=== PATIENT | male | born 1970 | race African-American/Black ===

== ENCOUNTER 2017-06-23 15:21 | Emergency (ER) | payer MEDICAID, BC ==
[~2017-06-23] VITALS: Ht 175.3 cm; Wt 90.7 kg
[2017-06-23] MEDS ORDERED: NKM (15:37)
[2017-06-23 16:11] VITALS: BP 130/84
[2017-06-23] MEDS ORDERED: IBUPROFEN600 MG ORAL (16:46)
[2017-06-23] MEDS ORDERED: ROBAXIN500 MG PO (16:46)
--- NOTE | 2017-06-23 16:46 | Emergency Room Report ---
History of Present Illness General Chief Complaint: Headache Source: Patient Present Illness HPI 47-year-old male presents to the emergency department complaining of progressive headache 8/10 in severity in the right posterior area that radiates down into the neck. 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 he describes right sided neck tightness. denies recent ill contacts or travel. Patient denies sudden onset, nausea, vomiting, dizziness. Denies fevers, chills or cough. No photophobia. Denies lateral weakness or slurred speech. Denies CP, Palpitations, LOC, AMS, dizziness, Changes in Vision , Sensation, paresthesias, or a sudden severe headache. Allergies: Coded Allergies: FISH CONTAINING PRODUCTS (Verified Allergy, Unknown, 06/23/17) Patient History Past Medical History: see triage record Past Surgical History: none Pertinent Family History: none Reviewed Nursing Documentation: PMH: Agreed, PSxH: Agreed Nursing Documentation-PMH Hx Asthma: Yes Review of Systems All Other Systems: negative except mentioned in HPI Physical Exam Vital Signs Date Time Temp Pulse Resp B/P (MAP) Pulse Ox O2 Delivery O2 Flow Rate FiO2 06/23/17 15:32 98.1 97 16 130/84 97 Room Air Sp02 EP Interpretation: reviewed, normal General Appearance: no apparent distress, alert, GCS 15, non-toxic Head: normocephalic, atraumatic Eyes: bilateral eye normal inspection, bilateral eye PERRL ENT: hearing grossly normal, normal voice Neck: full range of motion, no bony tend, tender lateral - right lateral paracervical ttp, and right trapezius ttp. Respiratory: lungs clear, normal breath sounds, speaking full sentences Cardiovascular #1: regular rate, rhythm Musculoskeletal: back normal, gait/station normal, normal range of motion, tender - right cervical and trapezius ttp, no midline ttp, FROM. Neurologic: alert, oriented x3, responsive, motor strength/tone normal, sensory intact, normal gait, speech normal, grossly normal Psychiatric: judgement/insight normal Skin: normal color, no rash, warm/dry, well hydrated Lymphatic: no adenopathy Medical Decision Making PA Attestation Dr. Raza is my supervising physician whom pt. management has been discussed with. Diagnostic Impression: Primary Impression: Headache Qualified Codes: G44.209 - Tension-type headache, unspecified, not intractable Additional Impression: Spasm of cervical paraspinous muscle ER Course 47-year-old male presents to the emergency department complaining of progressive headache 8/10 in severity in the right posterior area that radiates down into the neck. 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 he describes right sided neck tightness. denies recent ill contacts or travel. Patient denies sudden onset, nausea, vomiting, dizziness. Denies fevers, chills or cough. No photophobia. Denies lateral weakness or slurred speech. Denies CP, Palpitations, LOC, AMS, dizziness, Changes in Vision , Sensation, paresthesias, or a sudden severe headache. Ddx considered but are not limited to Fracture, dislocation, contusion, vertebral artery dissection, Sprain/Strain/Spasm just to name a few. Vital signs: are WNL, pt. is afebrile H&PE are most consistent with muscle spasm, ORDERS: none required at this time. ED INTERVENTIONS: -Reglan -Soma DISCHARGE: At this time pt. is stable for d/c to home. Will provide printed patient care instructions, and any necessary prescriptions. Care plan and follow up instructions have been discussed with the patient prior to discharge. Last Vital Signs Date Time Temp Pulse Resp B/P (MAP) Pulse Ox O2 Delivery O2 Flow Rate FiO2 06/23/17 16:11 98.1 16 130/84 97 Room Air 06/23/17 15:32 97 Disposition: HOME, SELF-CARE Condition: Stable Scripts Ibuprofen* (MOTRIN*) 600 Mg Tablet 600 MG ORAL THREE TIMES A DAY, #30 TAB 0 Refills Prov: Alonso,Isabelle P.A. 06/23/17 Methocarbamol* (ROBAXIN*) 500 Mg Tablet 1000 MG PO TID, #41 TAB 0 Refills Prov: Alonso,Isabelle P.A. 06/23/17 Patient Instructions: Muscle Strain, [id number], Tension Headache Additional Instructions: Take medications as directed. Follow up with a Primary Care Provider in 3-5 days, even if your symptoms have resolved. --Please review list of primary care clinics, if you do not already have a primary care provider Return sooner to ED if new symptoms occur, or current symptoms become worse. Do not drink alcohol, drive, or operate heavy machinery while taking Robaxin as this may cause drowsiness. - Please note that this Emergency Department Report was dictated using [employer] technology software, occasionally this can lead to erroneous entry secondary to interpretation by the dictation equipment. Isabelle Gupta Jun 23, 2017 16:46
[2017-06-23 16:55] VITALS: BP 130/84
== END 2017-06-23 16:55 | disposition home or self-care (01) ==
LOC: EMR 16:00
DX: G44.209 Tension-type headache, unspecified, not intractable (principal); M62.838 Other muscle spasm; Z91.013 Allergy to seafood
CPT/HCPCS: 99283